=== PATIENT | female | born 1955 | race Two or more races ===

== ENCOUNTER 2024-02-25 09:04 | Emergency (ER) | payer MEDICARE, OTHER ==
[~2024-02-25] VITALS: Ht 160 cm; Wt 61.0 kg
[2024-02-25 09:27] VITALS: BP 173/77; PULSE 87; RESP 16; O2SAT 97
[2024-02-25] MEDS ORDERED: AMOX500C2 PO (10:48)
== END 2024-02-25 10:50 | disposition home or self-care (01) ==
LOC: ER 09:04
DX: J03.90 Acute tonsillitis, unspecified (principal); E11.9 Type 2 diabetes mellitus without complications; Z88.6 Allergy status to analgesic agent